=== PATIENT | male | born 1965 | race Caucasian/White ===

== ENCOUNTER 2019-09-28 21:29 | Emergency (ER) | payer BC ==
[~2019-09-28] VITALS: Ht 167.6 cm; Wt 64.9 kg
[2019-09-28 21:29] VITALS: BP_SYST 163
--- NOTE | 2019-09-28 21:30 | NUR ---
Placed in room 08 . Placed on [employer] project manager, blood pressure machine and pulse oximeter. To gown for exam. Side rails up.
--- NOTE | 2019-09-28 22:05 | NUR ---
ER at bedside examining patient.
[2019-09-28] MEDS ORDERED: NACL 0.9% 1,000 ML IV ONE (22:15)
--- NOTE | 2019-09-28 22:20 | NUR ---
Pt BIB family to ED seeking evaluation of a gradual onset of fever (T-max 102) today. The patient further reports generalized weakness and chills. States the fever started when he was working out. 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 Otherwise, the patient denies cough, rhinorrhea, nausea, vomiting, diarrhea, or any other complaints.
[2019-09-28 23:34] LABS: BASOPHILS # (AUTO) 0.1 K/uL (0.0-0.2); BASOPHILS % (AUTO) 0.4 % (0.0-2.0); EOSINOPHILS # (AUTO) 0.1 K/uL (0.0-0.4); EOSINOPHILS % (AUTO) 1.1 % (0.0-4.0); HEMATOCRIT 46.3 % (36-54); LYMPHOCYTES # (AUTO) 0.5 K/uL (1.0-5.5); LYMPHOCYTES % (AUTO) 4.1 % (20.5-51.5); MEAN CORPUSCULAR HEMOGLOBIN 29 pg (27-31); MEAN CORPUSCULAR HGB CONC 35 % (32-36); MEAN CORPUSCULAR VOLUME 85 fL (79.0-98.0); MONOCYTES # (AUTO) 0.5 K/uL (0.0-1.0); MONOCYTES % (AUTO) 3.8 % (1.7-9.3); NEUTROPHILS # (AUTO) 11.9 K/uL (1.8-7.7); NEUTROPHILS % (AUTO) 90.6 % (40.0-70.0); PLATELET COUNT (AUTO) 168 K/uL (130-430); RED BLOOD CELL COUNT(AUTO) 5.42 MIL/uL (4.2-6.2); RED CELL DISTRIBUTION WIDTH 13.4 % (9.0-15.0); WHITE BLOOD COUNT (AUTO) 13.1 K/uL (4.8-10.8)
--- NOTE | 2019-09-28 23:34 | NUR ---
Updated Pt family by phone, and IVF well tolerated
[2019-09-28 23:45] LABS: CALCIUM 8.6 mg/dL (8.4-11.0); CREATININE 1.16 mg/dL (0.55-1.30); POTASSIUM 3.7 mmol/L (3.5-5.1)
[2019-09-28 23:49] LABS: ALBUMIN 4.1 g/dL (3.4-4.8); C-REACTIVE PROTEIN QUANT 0.4 mg/dL (0-0.5); TOTAL BILIRUBIN 0.6 mg/dL (0.0-1.0)
[2019-09-29] MEDS ORDERED: NACL 0.9% 1,000 ML IV ONE
--- NOTE | 2019-09-29 00:36 | NUR ---
VSS no s/s of acute distress Resting on gurney rails up
[2019-09-29 01:40] VITALS: BP_SYST 140
--- NOTE | 2019-09-29 01:40 | NUR ---
Patient given written and verbal discharge instructions and verbalizes understanding. ER MD discussed with patient the results and treatment provided. Patient in stable condition. ID arm band removed. IV catheter removed intact and dressing applied, no active bleeding. Patient educated on pain management and to follow up with PMD. Pain Scale 0/10 Opportunity for questions provided and answered.
--- NOTE | 2019-10-03 10:51 | NUR ---
Patient was notified about his "Not Detected" COVID-19 Laboratory Test Results and instructed to follow the preventive measures ([place] [employer]).
== END 2019-09-29 01:40 | disposition home or self-care (01) ==
LOC: SED 21:29
DX: B34.9 Viral infection, unspecified (principal)
CPT/HCPCS: 36415; 36600; 71045; 80053; 82550; 82728; 82803; 83605; 83615; 83880; 84484; 85025; 85384; 85610; 85730; 86140; 86710; 87040; 93005; 99285; J7030

== ENCOUNTER 2023-01-06 18:03 | Emergency (ER) | payer BC ==
[~2023-01-06] VITALS: Ht 167.6 cm; Wt 68.0 kg
[2023-01-06 18:23] VITALS: BP_SYST 127; PULSE 70; RESP 18; TEMP 98.3; O2SAT 99
[2023-01-06] MEDS ORDERED: AMOX-520 PO (19:53)
[2023-01-06] MEDS ORDERED: IBUP-1969 PO (19:53)
[2023-01-06] MEDS: IBUPROFEN 600 MG TABLET PO ONE (19:57)
[2023-01-06 20:00] VITALS: BP_SYST 127; PULSE 70; RESP 18; TEMP 98.3; O2SAT 99
== END 2023-01-06 20:00 | disposition home or self-care (01) ==
LOC: SED 18:03
DX: K04.7 Periapical abscess without sinus (principal); K02.9 Dental caries, unspecified; K08.89 Other specified disorders of teeth and supporting structures; E11.9 Type 2 diabetes mellitus without complications; I10 Essential (primary) hypertension; Z79.899 Other long term (current) drug therapy
CPT/HCPCS: 99283